=== PATIENT | male | born 1945 | race Two or more races ===

== ENCOUNTER 2020-11-30 15:24 | Emergency (ER) | payer SELFPAY ==
[~2020-11-30] VITALS: Ht 167.6 cm; Wt 57.2 kg
[2020-11-30 16:53] LABS: MEAN CORPUSCULAR HEMOGLOBIN 28.3 pg (27.5-34.5); MEAN CORPUSCULAR HGB CONC 33.3 g/dL (33.2-36.2); MEAN PLATELET VOLUME 8.3 fL (7.4-10.4); PLATELET COUNT 236 x10^3/uL (130-400); RED BLOOD COUNT 3.32 x10^6/uL (4.38-5.82); RED CELL DISTRIBUTION WIDTH 17.7 % (9.4-14.8)
[2020-11-30 16:59] LABS: ALBUMIN 2.7 g/dL (3.4-5.0); ANION GAP 5 mmol/L (5-15); CALCIUM 9.2 mg/dL (8.5-10.1); CHLORIDE 112 mmol/L (98-107)
[2020-11-30 17:03] LABS: ALANINE AMINOTRANSFERASE 17 U/L (12-78); ALKALINE PHOSPHATASE 83 U/L (45-117); BILIRUBIN,TOTAL 0.8 mg/dL (0.2-1.0); CREATININE 1.29 mg/dL (0.7-1.3); TOTAL PROTEIN 7.4 g/dL (6.4-8.2)
[2020-11-30 17:45] LABS: ANISOCYTOSIS 1+; BAND#(MANUAL) 0.06 x10^3/uL; BANDS%(MANUAL) 1 % (0-7); EOS#(MANUAL) 0.25 x10^3/uL (0.0-0.4); EOS% (MANUAL) 4 % (1-7); LYMPH#(MANUAL) 1.55 x10^3/uL (1-3.4); LYMPHS% (MANUAL) 25 % (22-44); MONOS#(MANUAL) 0.37 x10^3/uL (0.3-2.7); MONOS% (MANUAL) 6 % (2-9); SEG#(MANUAL) 3.97 x10^3/uL (1.8-6.8); SEGS% (MANUAL) 64 % (42-75)
[2020-11-30 17:46] LABS: HYPOCHROMIA 1+; OVALOCYTES 1+; POLYCHROMASIA 1+
[2020-11-30 17:47] LABS: <PLATELET ESTIMATE> ADEQUATE; <PLT MORPHOLOGY> NORMAL PLT MORPH
[2020-11-30 18:20] VITALS: BP 160/89
--- NOTE | 2020-11-30 18:20 | NUR ---
SON HERE TO PICK PT UP. D/C INSTRUCTIONS, MEDS & F/U APPT RV'WD WITH PT USING CARPET TECHNICIAN, HE VERBALIZES UNDERSTANDING. PT AMBULATED OUT OF ED WITH SON WITHOUT DIFFICULTY.
== END 2020-11-30 18:27 | disposition home or self-care (01) ==
LOC: ED 18:21
DX: L29.8 Other pruritus (principal)
CPT/HCPCS: 36415; 80053; 85025; 99283